=== PATIENT | male | born 1965 | race Caucasian/White ===

== ENCOUNTER 2017-02-21 14:36 | Observation (INO) | payer SELFPAY ==
[2017-02-21] MEDS ORDERED: Aspirin 81 MG Tab.Chew PO ONE (14:43)
[2017-02-21] MEDS ORDERED: Sodium Chloride 0.9% 10 ML Syringe FLUSH PRN (14:43)
[2017-02-21] MEDS ORDERED: Sodium Chloride 0.9% 2.5 ML Syringe FLUSH PRN (14:43)
--- NOTE | 2017-02-21 14:49 | EDM.PDOC ---
ED HPI GENERAL MEDICAL PROBLEM - General Chief Complaint: Chest Pain Stated Complaint: CHEST PAIN Time Seen by Provider: 02/21/17 14:37 - History of Present Illness INITIAL COMMENTS - FREE TEXT/NARRATIVE: HISTORY AND PHYSICAL: History of present illness: The patient is a 51-year-old male with no history of cardiac or pulmonary disease but does state that occasionally his blood pressure will be elevated but is not on medications for it and it follows at the [facility] when he needs care and who presents with complaints of sudden onset of left-sided chest pain that radiates to his left arm. The patient says he has a long-standing history of neck and back problems for which she takes ibuprofen and Flexeril when he needs it and says he had a cold about 3 weeks ago which has improved. Today he was having a normal day and was driving his truck when he suddenly felt left upper chest pain that radiated to his left upper arm it started a proximally 10 minutes ago and he rates it as a 7/10. He came immediately here and did not take anything for this pain prior to arrival. He is not short of breath or diaphoretic but did feel little nauseated with the pain. He has no weakness or tingling in his left upper extremity. The patient has only had an EKG in the past and says that he had an episode of chest pain like this years ago and had EKG and was told it was stress related. The patient has never done any other cardiac testing. The pain has been ongoing for 10 minutes prior to coming here and is ongoing here in the ED. The patient has no smoking or drug use history only drinks occasionally. He has no leg pain or swelling. Patient says that his father had multiple heart problems including his first heart attack at 50 years of age and his brother also had a heart attack at 50 years of age. Review of systems: As per history of present illness and below otherwise all systems reviewed and negative. Past medical history: As per history of present illness and as reviewed below otherwise noncontributory. Surgical history: As per history of present illness and as reviewed below otherwise noncontributory. Social history: No reported history of drug or alcohol abuse. Family history: As per history of present illness and as reviewed below otherwise noncontributory. Physical exam: Gen.: Well-developed well-nourished man who is nontoxic and speaking clearly and easily in ED. Vital signs have been reviewed by me. HEENT: Atraumatic, normocephalic, pupils reactive, negative for conjunctival pallor or scleral icterus, mucous membranes moist, throat clear, neck supple, nontender, trachea midline. Lungs: Clear to auscultation, breath sounds equal bilaterally, chest with some mild tenderness with palpation in the left upper chest wall area without defects swelling deformities or crepitus. Heart: S1S2, regular rate and rhythm no overt murmurs Abdomen: Soft, nondistended, nontender. Negative for masses or hepatosplenomegaly. Negative for costovertebral tenderness. Pelvis: Stable nontender. Genitourinary: Deferred. Rectal: Deferred. Extremities: Atraumatic, negative for cords or calf pain. Neurovascular unremarkable. No pedal edema or leg asymmetry Neuro: Awake, alert, oriented. Cranial nerves II through XII unremarkable. Cerebellum unremarkable. Motor and sensory unremarkable throughout. Exam nonfocal. Diagnostics: EKG x 2 CBC CMP troponin d-dimer INR chest x-ray Therapeutics: IV O2 monitor aspirin nitroglycerin sublingual, nitroglycerin paste morphine Patient tells nursing that after the 3 sublingual nitroglycerin his pain is now a 4/7. We will place Nitropaste to give a dose of morphine and reevaluate as the EKG shows no acute changes and we are currently awaiting the troponin. 1545: After the morphine and Nitropaste the patient says that his pain is a 1-2/ 10 and he feels much more comfortable. We are currently awaiting the troponin level to determine disposition but the patient is aware that he will either be admitted here or transfer to [facility] pending that result. 1605: Repeat EKG was performed which reveals no acute changes and no change from prior and the patient is currently chest pain-free. I discussed the case with the hospitalist Dr. Carbera at 16 11 PM and he agrees for admission. The patient is also aware of testing results and need for admission and is agreeable. Impression: Chest pain rule out ACS Definitive disposition and diagnosis as appropriate pending reevaluation and review of above. left chest Pain Score (Numeric/FACES): 7 - Related Data Allergies Allergy/AdvReac Type Severity Reaction Status Date / Time No Known Allergies Allergy Verified 02/21/17 14:42 Home Meds: Home Meds . [No Known Home Meds] 02/21/17 [History] Past Medical History HEENT History: Reports: None Cardiovascular History: Reports: None Respiratory History: Reports: None Gastrointestinal History: Reports: None Genitourinary History: Reports: None Musculoskeletal History: Reports: Other (See Below) Neurological History: Reports: None Psychiatric History: Reports: None Endocrine/Metabolic History: Reports: None Hematologic History: Reports: None Immunologic History: Reports: None Oncologic (Cancer) History: Reports: None Dermatologic History: Reports: None - Past Surgical History Head Surgeries/Procedures: Reports: None HEENT Surgical History: Reports: None Cardiovascular Surgical History: Reports: None Respiratory Surgical History: Reports: None GI Surgical History: Reports: None Male Surgical History: Reports: None Endocrine Surgical History: Reports: None Neurological Surgical History: Reports: None Musculoskeletal Surgical History: Reports: None Oncologic Surgical History: Reports: None Dermatological Surgical History: Reports: None Social & Family History - Family History Cardiac: Reports: NE - Tobacco Use Smoking Status *Q: Never Smoker - Caffeine Use Caffeine Use: Reports: Coffee - Recreational Drug Use Recreational Drug Use: No ED ROS GENERAL - Review of Systems Review Of Systems: ROS reveals no pertinent complaints other than HPI. ED EXAM, GENERAL - Physical Exam Exam: See Below (See dictation) Course - Vital Signs Last Recorded V/S: Last Vital Signs Temp 36.5 C 02/21/17 14:39 Pulse 77 02/21/17 15:06 Resp 18 02/21/17 15:06 BP 172/97 H 02/21/17 15:11 Pulse Ox 98 02/21/17 15:06 - Orders/Labs/Meds Orders: Active Orders 24 hr Category Date Time Status Cardiac Monitoring [RC] . DIRECTED Care 02/21/17 14:43 Active EKG Documentation Completion [RC] STAT Care 02/21/17 14:43 Active EKG Documentation Completion [RC] STAT Care 02/21/17 15:47 Active Oxygen Therapy, ED [RC] ASDIRECTED Care 02/21/17 14:43 Active Pulse Oximetry [RC] ASDIRECTED Care 02/21/17 14:43 Active Sodium Chloride 0.9% [Saline Flush] Med 02/21/17 14:43 Active 10 ml FLUSH ASDIRECTED PRN Sodium Chloride 0.9% [Saline Flush] Med 02/21/17 14:43 Active 2.5 ml FLUSH ASDIRECTED PRN Saline Lock Insert [OM.PC] Stat Oth 02/21/17 14:43 Ordered Medication Orders Sodium Chloride (Saline Flush) 10 ml FLUSH ASDIRECTED PRN PRN Reason: Keep Vein Open Sodium Chloride (Saline Flush) 2.5 ml FLUSH ASDIRECTED PRN PRN Reason: Keep Vein Open Labs: Laboratory Tests 02/21/17 02/21/17 02/21/17 Range/Units 14:55 14:55 14:55 WBC 6.62 (4.0-11.0) K/uL RBC 5.00 (4.50-5.90) M/uL Hgb 15.3 (13.0-17.0) g/dL Hct 43.6 (38.0-50.0) % MCV 87.2 (80.0-98.0) fL MCH 30.6 (27.0-32.0) pg MCHC 35.1 (31.0-37.0) g/dL RDW Std Deviation 38.7 (28.0-62.0) fl RDW Coeff of Grady 12 (11.0-15.0) % Plt Count 194 (150-400) K/uL MPV 11.70 (7.40-12.00) fL Neut % (Auto) 55.7 (48.0-80.0) % Lymph % (Auto) 27.2 (16.0-40.0) % Perry % (Auto) 7.9 (0.0-15.0) % Eos % (Auto) 8.3 H (0.0-7.0) % Baso % (Auto) 0.9 (0.0-1.5) % Neut # (Auto) 3.7 (1.4-5.7) K/uL Lymph # (Auto) 1.8 (0.6-2.4) K/uL Perry # (Auto) 0.5 (0.0-0.8) K/uL Eos # (Auto) 0.6 (0.0-0.7) K/uL Baso # (Auto) 0.1 (0.0-0.1) K/uL Nucleated RBC % 0.0 /100WBC Nucleated RBCs # 0 K/uL INR 1.03 (0.86-1.11) D-Dimer, Quantitative < 0.19 (0.0-0.52) mg/LFEU Sodium 141 (136-146) mmol/L Potassium 3.8 (3.5-5.1) mmol/L Chloride 108 (98-110) mmol/L Carbon Dioxide 25 (21-31) mmol/L BUN 12 (6.0-23.0) mg/dL Creatinine 1.0 (0.6-1.5) mg/dL Est Cr Clr Drug Dosing 89.36 mL/min Estimated GFR (MDRD) > 60.0 ml/min Glucose 88 (60-110) mg/dL Calcium 9.3 (8.8-10.8) mg/dL Total Bilirubin 0.4 (0.1-1.5) mg/dL AST 15 (5-40) IU/L ALT 21 (8-54) IU/L Alkaline Phosphatase 74 (40-150) Troponin I < 0.10 (0.0-0.29) NG/ML Total Protein 7.0 (6.0-8.0) g/dL Albumin 4.3 (3.5-5.0) g/dL Globulin 2.7 (2.0-3.5) g/dL Albumin/Globulin Ratio 1.6 (1.3-2.8) Meds: Medications Generic Name Dose Route Start Last Admin Trade Name Freq PRN Reason Stop Dose Admin Sodium Chloride 10 ml 02/21/17 14:43 Saline Flush FLUSH ASDIRECTED PRN Keep Vein Open Sodium Chloride 2.5 ml 02/21/17 14:43 Saline Flush FLUSH ASDIRECTED PRN Keep Vein Open Discontinued Medications Generic Name Dose Route Start Last Admin Trade Name Freq PRN Reason Stop Dose Admin Aspirin 324 mg 02/21/17 14:43 02/21/17 15:04 Aspirin PO 02/21/17 14:44 324 mg ONETIME ONE Administration Morphine Sulfate 4 mg 02/21/17 15:13 02/21/17 15:27 Morphine IVPUSH 02/21/17 15:14 4 mg ONETIME ONE Administration Nitroglycerin 0.4 mg 02/21/17 14:42 02/21/17 15:11 Nitrostat SL 02/21/17 14:43 0.4 mg ONETIME ONE Administration Nitroglycerin 1 gm 02/21/17 15:13 02/21/17 15:28 Nitro-Bid 2% TOP 02/21/17 15:14 1 gm ONETIME ONE Administration Departure - Departure Time of Disposition: 16:13 Disposition: Refer to Observation Condition: Good Clinical Impression: Acute coronary syndrome - Discharge Information Forms: ED Department Discharge - My Orders Last 24 Hours: My Active Orders 02/21/17 14:43 Cardiac Monitoring [RC] . DIRECTED EKG Documentation Completion [RC] STAT Oxygen Therapy, ED [RC] ASDIRECTED Pulse Oximetry [RC] ASDIRECTED Sodium Chloride 0.9% [Saline Flush] 10 ml FLUSH ASDIRECTED PRN Sodium Chloride 0.9% [Saline Flush] 2.5 ml FLUSH ASDIRECTED PRN Saline Lock Insert [OM.PC] Stat 02/21/17 15:47 EKG Documentation Completion [RC] STAT - Assessment/Plan Last 24 Hours: My Active Orders 02/21/17 14:43 Cardiac Monitoring [RC] . DIRECTED EKG Documentation Completion [RC] STAT Oxygen Therapy, ED [RC] ASDIRECTED Pulse Oximetry [RC] ASDIRECTED Sodium Chloride 0.9% [Saline Flush] 10 ml FLUSH ASDIRECTED PRN Sodium Chloride 0.9% [Saline Flush] 2.5 ml FLUSH ASDIRECTED PRN Saline Lock Insert [OM.PC] Stat 02/21/17 15:47 EKG Documentation Completion [RC] STAT
[2017-02-21] MEDS: Nitroglycerin 0.4 MG Tab.SL SL ONE ×3 (15:01→15:11)
[2017-02-21] MEDS ORDERED: Nitroglycerin 2% Oint 1 GM UD Packet TOP ONE (15:13)
[2017-02-21] MEDS ORDERED: Morphine 2 MG/ML Syringe IVPUSH ONE (15:13)
--- NOTE | 2017-02-21 15:28 | CR ---
EXAMINATION: AP chest radiograph HISTORY: Shortness of breath. FINDINGS: The trachea is midline. The cardiomediastinal silhouette is within normal limits. No pulmonary infilt rates, effusions or pneumothorax. Osseous structures appear unremarkable. IMPRESSION: No acute cardiopulmonary process.
[2017-02-21 15:48] LABS: CHLORIDE,CL 108 mmol/L (98-110); SODIUM,NA 141 mmol/L (136-146)
[2017-02-21] MEDS ORDERED: Acetaminophen 325 MG Tab PO PRN (16:28)
--- NOTE | 2017-02-21 16:47 | PCM.HP ---
H&P History of Present Illness - General Date of Service: 02/21/17 Admit Problem/Dx: Admission Diagnosis/Problem Admission Diagnosis/Problem Chest pain Source of Information: Patient History Limitations: Reports: No Limitations - History of Present Illness Initial Comments - Free Text/Narative: This 51 year old male with little pmh presented to the ED this afternoon with sudden onset of L sided anterior chest pain. He reports he was driving and started having sharp dull pain to his anterior L chest which radiated to his L arm, which was a throbbing pain. He immediately came to the ED to be evaluated due to family history of father and brother having their first MIs at age 50. He reports some nausea associated with the pain but no diaphoresis or SOB. He denies any injury to his chest pain. He denies headache, fever, URI smptoms, cough, fever or abdominal pain. No black or bloody BMs. No excessive use of NSAIDs. He reports chronic neck and low back pain from degenerative disk disease , which he was on Motrin 800 mg daily and Flexeril, which he stopped 3-4 months ago. He denies tobacco use or recreational drug use, he does occasionally uses alcohol. In the ED all labs unremarkable, troponin negative. CXR negative for acute cardiopulmonary process. BP noted to be elevated on admission, 160/100s. EKG SR with ST segment changes. He was given ASA, SL nitro x 1 and then NItro paste 1 inch applied. Morphine 4 mg also given, which with nitro paste relieved pain completely. He will be admitted observation for chest pain R/O ACS. PCP, [place] [facility]. left chest Pain Score (Numeric/FACES): 7 - Related Data Allergies/Adverse Reactions: Allergies Allergy/AdvReac Type Severity Reaction Status Date / Time No Known Allergies Allergy Verified 02/21/17 14:42 Home Medications: Home Meds . [No Known Home Meds] 02/21/17 [History] Past Medical History HEENT History: Reports: None Cardiovascular History: Reports: None, Afib. Denies: CAD, High Cholesterol, HI Respiratory History: Reports: None. Denies: Asthma, COPD, PE Gastrointestinal History: Reports: GERD (intermittent, takes Omeprazole PRN.) Genitourinary History: Reports: None. Denies: Acute Renal Failure, Chronic Renal Insuffiency Musculoskeletal History: Reports: Back Pain, Chronic (Neck and low back from degenerative disc disease.) Neurological History: Reports: None. Denies: CVA, Headaches, Chronic, MS, TIA Psychiatric History: Reports: None. Denies: Anxiety, Depression Endocrine/Metabolic History: Reports: None. Denies: Diabetes, Type II, Hypothyroidism Hematologic History: Reports: None Immunologic History: Reports: None Oncologic (Cancer) History: Reports: None Dermatologic History: Reports: None - Past Surgical History Head Surgeries/Procedures: Reports: None HEENT Surgical History: Reports: None Cardiovascular Surgical History: Reports: None Respiratory Surgical History: Reports: None GI Surgical History: Reports: None Male Surgical History: Reports: None Endocrine Surgical History: Reports: None Neurological Surgical History: Reports: None Musculoskeletal Surgical History: Reports: None Oncologic Surgical History: Reports: None Dermatological Surgical History: Reports: None Social & Family History - Family History Cardiac: Reports: HI - Tobacco Use Smoking Status *Q: Never Smoker - Caffeine Use Caffeine Use: Reports: Coffee - Alcohol Use Alcohol Use History: No - Recreational Drug Use Recreational Drug Use: No - Living Situation & Occupation Living situation: Reports: Occupation: Employed H&P Review of Systems - Review of Systems: Review Of Systems: See Below General: Reports: No Symptoms. Denies: Fever, Chills, Malaise, Weakness HEENT: Reports: No Symptoms. Denies: Hearing Changes, Sinus Congestion, Visual Changes Pulmonary: Reports: No Symptoms. Denies: Shortness of Breath, Wheezing, Cough Cardiovascular: Reports: Chest Pain (no longer having, was anterior upper L chest). Denies: Edema, Syncope Gastrointestinal: Reports: No Symptoms. Denies: Abdominal Pain, Black Stool, Bloody Stool, Nausea Genitourinary: Reports: No Symptoms. Denies: Dysuria, Frequency, Burning Musculoskeletal: Reports: No Symptoms Skin: Reports: No Symptoms Psychiatric: Reports: No Symptoms Neurological: Reports: No Symptoms Hematologic/Lymphatic: Reports: No Symptoms Immunologic: Reports: No Symptoms Exam - Exam Exam: See Below - Vital Signs Vital Signs: Last Vital Signs Temp 97.7 F 02/21/17 14:39 Pulse 77 02/21/17 15:06 Resp 18 02/21/17 15:06 BP 172/97 H 02/21/17 15:11 Pulse Ox 98 02/21/17 15:06 Weight: 81.6 kg - Exam Quality Assessment: DVT Prophylaxis General: Alert, Oriented, Cooperative HEENT: Conjunctiva Clear, Mucosa Moist & [place], Posterior Pharynx Clear Neck: Supple, +2 Carotid Pulse wo Bruit, Full Range of Motion Lungs: Clear to Auscultation, Normal Respiratory Effort Cardiovascular: Regular Rate, Regular Rhythm, Normal S1, Normal S2, Other (no chest paon to palpation of anterior chest wall. ). No: Systolic Murmur GI/Abdominal Exam: Normal Bowel Sounds, Soft, Non-Tender, No Organomegaly, No Distention, No Abnormal Bruit, No Mass, Pelvis Stable Back Exam: Normal Inspection, Full Range of Motion, NT Extremities: Normal Inspection, Normal Range of Motion, Non-Tender, No Pedal Edema, Normal Capillary Refill Neuro Extensive - Mental Status: Alert, Oriented x3, Normal Mood/Affect, Normal Cognition Neuro Extensive - Motor, Sensory, Reflexes: CN II-XII Intact, Normal Gait Psychiatric: Alert, Normal Affect, Normal Mood - Patient Data Result Diagrams: 02/21/17 14:55 02/21/17 14:55 EKG INTERPRETATION EKG Date: 02/21/17 Rhythm: NSR Rate (Beats/Min): 70 [place]: Normal P-Wave: Present QRS: Normal ST-T: Normal QT: Normal *Q Meaningful Use (ADM) - VTE *Q VTE Criteria *Q: - Stroke *Q Stroke Criteria *Q: - AMI *Q AMI Criteria *Q: - Problem List (1) Chest pain SNOMED Code(s): 39574757 ICD Code: R07.9 - CHEST PAIN, UNSPECIFIED Status: Acute Current Visit: Yes Qualifiers: Chest pain type: unspecified Qualified Code(s): R07.9 - Chest pain, unspecified (2) HTN (hypertension) SNOMED Code(s): 71034678 ICD Code: I10 - ESSENTIAL (PRIMARY) HYPERTENSION Status: Acute Current Visit: Yes Qualifiers: Hypertension type: essential hypertension Qualified Code(s): I10 - Essential (primary) hypertension (3) Chronic back pain SNOMED Code(s): 230680969 ICD Code: M54.9 - DORSALGIA, UNSPECIFIED; G89.29 - OTHER CHRONIC PAIN Status: Chronic Current Visit: Yes Qualifiers: Back pain location: low back pain Back pain laterality: bilateral Sciatica presence: without sciatica Qualified Code(s): M54.5 - Low back pain; G89.29 - Other chronic pain; G89.29 - Other chronic pain Problem List Initiated/Reviewed/Updated: Yes Orders Last 24hrs: Active Orders 24 hr Category Date Time Status Communication Order [RC] PRN Care 02/21/17 16:31 Active Intake and Output [RC] QSHIFT Care 02/21/17 16:29 Active Oxygen Therapy [RC] PRN Care 02/21/17 16:28 Active Telemetry Monitoring [Cardiac Monitoring] [RC] . Care 02/21/17 16:31 Active DIRECTED Up With Assistance [RC] ASDIRECTED Care 02/21/17 16:28 Active VTE/DVT Education [RC] PER UNIT ROUTINE Care 02/21/17 16:28 Active Vital Signs [RC] Q4H Care 02/21/17 16:28 Active Heart Healthy Diet [DIET] Diet 02/21/17 Dinner Active GLYCOSYLATED HEMOGLOBIN,HGBA1C [CHEM] Routine Lab 02/21/17 14:55 Received LIPID PANEL [CHEM] Routine Lab 02/21/17 14:55 Received TROPONIN I [CHEM] Q6H Lab 02/21/17 21:00 Ordered TROPONIN I [CHEM] Q6H Lab 02/22/17 03:00 Ordered Acetaminophen [Tylenol] Med 02/21/17 16:28 Active 650 mg PO Q4H PRN Aspirin Med 02/22/17 09:00 Active 81 mg PO DAILY Resuscitation Status Routine Resus Stat 02/21/17 16:28 Ordered Medication Orders Acetaminophen (Tylenol) 650 mg PO Q4H PRN PRN Reason: Pain (mild 1-3) Aspirin (Aspirin) 81 mg PO DAILY TRUMAN Sodium Chloride (Saline Flush) 10 ml FLUSH ASDIRECTED PRN PRN Reason: Keep Vein Open Sodium Chloride (Saline Flush) 2.5 ml FLUSH ASDIRECTED PRN PRN Reason: Keep Vein Open Assessment/Plan Comment:: This 51 year old male admitted with chest pain, ruling out ACS 1. Chest pain: Monitor on telemetry. Trend troponins. Will obtained cholesterol and A1c due to risk factors. Has family history of MIs at age 50 with father and brother. Leave Nitro paste on for now, remove this evening. Will monitor for recurrent chest pain. Educated patient on the need for stress test as outpatient for further evaluation. 2. HTN: Has had some history of, but never medicated for. BP remains slightly elevated with Nitro paste on, 140/80s, will start Lisinopril 10 mg tonight and monitor. 3. Chronic back/neck pain: Doesn't take anything chronically at home anymore, Tylenol when needed. This is ordered PRN pain. VTE: Lovenox Dispo: Likely discharge in am.
[2017-02-21] MEDS: Lisinopril 10 MG Tab PO SCH (17:39)
[2017-02-22] MEDS ORDERED: Aspirin 81 MG Tab.Chew PO SCH (09:00)
[2017-02-22] MEDS: Lisinopril 10 MG Tab PO SCH (09:26)
--- NOTE | 2017-02-22 10:21 | PCM.DCSUM1 ---
Discharge Summary - Hospital Course Brief History: This 51 year old male with little pmh presented to the ED this afternoon with sudden onset of L sided anterior chest pain. He reports he was driving and started having sharp dull pain to his anterior L chest which radiated to his L arm, which was a throbbing pain. He immediately came to the ED to be evaluated due to family history of father and brother having their first MIs at age 50. He reports some nausea associated with the pain but no diaphoresis or SOB. He denies any injury to his chest pain. He denies headache, fever, URI smptoms, cough, fever or abdominal pain. No black or bloody BMs. No excessive use of NSAIDs. He reports chronic neck and low back pain from degenerative disk disease, which he was on Motrin 800 mg daily and Flexeril, which he stopped 3-4 months ago. He denies tobacco use or recreational drug use , he does occasionally uses alcohol. In the ED all labs unremarkable, troponin negative. CXR negative for acute cardiopulmonary process. BP noted to be elevated on admission, 160/100s. EKG SR with ST segment changes. He was given ASA, SL nitro x 1 and then NItro paste 1 inch applied. Morphine 4 mg also given , which with nitro paste relieved pain completely. He will be admitted observation for chest pain R/O ACS. - Discharge Data Discharge Date: 02/22/17 Discharge Disposition: Home, Self-Care 01 Condition: Stable - Discharge Diagnosis/Problem(s) (1) Chest pain SNOMED Code(s): 17930589 ICD Code: R07.9 - CHEST PAIN, UNSPECIFIED Status: Resolved Current Visit : Yes Qualifiers: Chest pain type: unspecified Qualified Code(s): R07.9 - Chest pain, unspecified (2) HTN (hypertension) SNOMED Code(s): 09481960 ICD Code: I10 - ESSENTIAL (PRIMARY) HYPERTENSION Status: Acute Current Visit: Yes Qualifiers: Hypertension type: essential hypertension Qualified Code(s): I10 - Essential (primary) hypertension (3) Chronic back pain SNOMED Code(s): 442886220 ICD Code: M54.9 - DORSALGIA, UNSPECIFIED; G89.29 - OTHER CHRONIC PAIN Status: Chronic Current Visit: Yes Qualifiers: Back pain location: low back pain Back pain laterality: bilateral Sciatica presence: without sciatica Qualified Code(s): M54.5 - Low back pain; G89.29 - Other chronic pain; G89.29 - Other chronic pain - Discharge Plan Prescriptions/Med Rec: Aspirin 81 mg PO DAILY #30 tab.chew Lisinopril [Prinivil] 10 mg PO DAILY #30 tablet Home Medications: Home Meds Aspirin 81 mg PO DAILY #30 tab.chew 02/22/17 [Rx] Lisinopril [Prinivil] 10 mg PO DAILY #30 tablet 02/22/17 [Rx] Patient Handouts: Acute Coronary Syndrome, Lisinopril tablets, Aspirin, ASA oral tablets Referrals: Darrin Cancino MD [Physician] - 03/01/17 8:30 am - Discharge Summary/Plan Comment DC Time >30 min.: No Discharge Summary/Plan Comment: Discharge Diagnoses: Chest pain, ACS ruled out HTN [place] was admitted and monitored due to L sided chest pain. Telemetry revealed , SR with no ST segment changes. Troponins all negative. ACS ruled out. No recurrent chest pain. Lisinopril was started due to elevated blood pressures in the ED on 150-160/100s. This brought BP down well, to 120-130/80s. Metoprolol was not started due to HR already in the 60-70s. He will be discharged home today with follow up outpatient stress test and with PCP in 1 week. He is to not perform strenuous activity until after the stress test and to take baby Aspirin 81 mg daily. He was encouraged to return to the clinic or ED if concerns should arise. - General Info Date of Service: 02/22/17 Admission Dx/Problem (Free Text: Admission Diagnosis/Problem Admission Diagnosis/Problem Chest pain Subjective Update: Doing well this morning, no further chest pain. No lightheadedness or dizziness. Feels good and eager to be discharge home. Functional Status: Reports: Pain Controlled, Tolerating Diet, Ambulating, Urinating - Review of Systems General: Reports: No Symptoms HEENT: Reports: No Symptoms Pulmonary: Reports: No Symptoms. Denies: Shortness of Breath, Cough, Sputum Cardiovascular: Reports: No Symptoms. Denies: Chest Pain Gastrointestinal: Reports: No Symptoms. Denies: Abdominal Pain, Nausea, Vomiting Genitourinary: Reports: No Symptoms Musculoskeletal: Reports: No Symptoms. Denies: Neck Pain Skin: Reports: No Symptoms Neurological: Reports: No Symptoms Psychiatric: Reports: No Symptoms - Patient Data Vitals - Most Recent: Last Vital Signs Temp 97.9 F 02/22/17 09:00 Pulse 60 02/22/17 09:00 Resp 18 02/22/17 09:00 BP 134/75 02/22/17 09:26 Pulse Ox 97 02/22/17 09:00 Weight - Most Recent: 81.6 kg I&O - Last 24 hours: Intake & Output 02/21/17 02/22/17 02/22/17 22:59 06:59 14:59 Intake Total 600 Output Total 550 Balance 50 Lab Results - Last 24 hrs: Laboratory Results - last 24 hr 02/21/17 02/22/17 Range/Units 20:54 02:50 Troponin I < 0.10 < 0.10 (0.0-0.29) NG/ML Med Orders - Current: Current Medications Acetaminophen (Tylenol) 650 mg PO Q4H PRN PRN Reason: Pain (mild 1-3) Last Admin: 02/22/17 00:03 Dose: 650 mg Aspirin (Aspirin) 81 mg PO DAILY [facility] Last Admin: 02/22/17 09:25 Dose: 81 mg Lisinopril (Prinivil) 10 mg PO DAILY [facility] Last Admin: 02/22/17 09:26 Dose: 10 mg Sodium Chloride (Saline Flush) 10 ml FLUSH ASDIRECTED PRN PRN Reason: Keep Vein Open Sodium Chloride (Saline Flush) 2.5 ml FLUSH ASDIRECTED PRN PRN Reason: Keep Vein Open Discontinued Medications Aspirin (Aspirin) 324 mg PO ONETIME ONE Stop: 02/21/17 14:44 Last Admin: 02/21/17 15:04 Dose: 324 mg Morphine Sulfate (Morphine) 4 mg IVPUSH ONETIME ONE Stop: 02/21/17 15:14 Last Admin: 02/21/17 15:27 Dose: 4 mg Nitroglycerin (Nitrostat) 0.4 mg SL ONETIME ONE Stop: 02/21/17 14:43 Last Admin: 02/21/17 15:11 Dose: 0.4 mg Nitroglycerin (Nitro-Bid 2%) 1 gm TOP ONETIME ONE Stop: 02/21/17 15:14 Last Admin: 02/21/17 15:28 Dose: 1 gm - Exam Quality Assessment: Denies: Supplemental Oxygen General: Reports: Alert, Oriented, Cooperative, No Acute Distress Neck: Reports: Supple Lungs: Reports: Clear to Auscultation, Normal Respiratory Effort Cardiovascular: Reports: Regular Rate, Regular Rhythm GI/Abdominal Exam: Normal Bowel Sounds, Soft, Non-Tender, No Organomegaly, No Distention, No Abnormal Bruit, No Mass, Pelvis Stable Back Exam: Reports: Normal Inspection, Full Range of Motion Skin: Reports: Warm, Dry, Intact Neurological: Reports: No New Focal Deficit Psy/Mental Status: Reports: Alert, Normal Affect, Normal Mood *Q Meaningful Use (DIS) - VTE *Q VTE Criteria *Q: - Stroke *Q Stroke Criteria *Q: - AMI *Q AMI Criteria *Q:
== END 2017-02-22 13:45 | disposition home or self-care (01) ==
LOC: MW.ED 14:36 → MW.MS 16:19 → UNDODISOB 02-22 13:45
PROVIDERS: ADMIT Internal Medicine; ATTEND Internal Medicine
DX: R07.9 Chest pain, unspecified (principal); G89.29 Other chronic pain; M54.2 Cervicalgia; M54.5 Low back pain; K21.9 Gastro-esophageal reflux disease without esophagitis; I10 Essential (primary) hypertension; Z79.82 Long term (current) use of aspirin; Z79.899 Other long term (current) drug therapy
CPT/HCPCS: 36415; 71045; 80053; 80061; 83036; 84484; 85025; 85379; 85610; 93005; 96374; 99285; A9270; G0378; J2270; 99284

== ENCOUNTER 2017-11-13 01:13 | Emergency (ER) | payer OTHER ==
[2017-11-13] MEDS ORDERED: Sodium Chloride 0.9% 10 ML Syringe FLUSH PRN (01:44)
[2017-11-13] MEDS ORDERED: Sodium Chloride 0.9% 1,000 ML IV ONE (01:44)
[2017-11-13] MEDS ORDERED: Sodium Chloride 0.9% 2.5 ML Syringe FLUSH PRN ×2 (01:44)
[2017-11-13] MEDS ORDERED: Ondansetron 4 MG/2 ML SDV IVPUSH ONE (01:44)
[2017-11-13] MEDS ORDERED: HYDROmorphone 2 MG/ML SDV IVPUSH ONE (01:44)
--- NOTE | 2017-11-13 01:46 | EDM.PDOC ---
ED HPI GENERAL MEDICAL PROBLEM - General Chief Complaint: Abdominal Pain Stated Complaint: ABDOMINAL PAIN Time Seen by Provider: 11/13/17 01:14 Source of Information: Reports: Patient History Limitations: Reports: No Limitations - History of Present Illness INITIAL COMMENTS - FREE TEXT/NARRATIVE: HISTORY AND PHYSICAL: History of present illness: 52-year-old male presenting to emergency department with chief complaint of epigastric/general abdominal pain starting approximately 1 hour ago. Patient states that approximately 1 hour ago he began to have epigastric abdominal pain. He denies any associated nausea or vomiting. Denies any diarrhea , bloody stool, or dark tarry stool. Patient was seen in emergency room approximately 2 months ago and diagnosed with H. pylori gastritis/peptic ulcer disease. At that time he was given triple therapy. He states that he did do the complete 2 weeks of the triple therapy. He has been trying to avoid spicy foods and up until this evening was doing very well. Patient does admit to taking a sildenafil oral gel that he got from a friend from the [facility] called, Kamagra 100 mg. He does believe that this may have been the etiology. Current pain is 8 out of 10 and generally located in epigastric area but then more diffusely in the right upper quadrant as well as right lower quadrant. He currently denies any chest pain, palpitations, shortness of breath, syncopal episodes, focal neurologic deficits. He is generally healthy and takes no regular medications other than a acid maitre d/proton pump inhibitor. He has been using Mylanta [id number] as well as needed. Has not followed up with a general surgeon as advised on his last visit. On exam abdomen is soft, he has tenderness to palpation specifically in the epigastric area but also in the right upper quadrant and more diffusely in the right lower and left upper quadrant. Positive bowel sounds heard in all 4 quadrants, abdomen is nonrigid and nondistended. No other significant findings. CBC, UA unremarkable. Patient was negative for H. pylori showing successful treatment from previous ER visit. Patient did have mild hypokalemia of 3.2. This was replaced with 40 KCl . Patient was also given 1 GI cocktail with improvement of symptoms. CT abdomen and pelvis did show some thickening of the distal esophagus with grossly normal-appearing stomach and duodenum. No other significant findings. Review of systems: As per history of present illness and below otherwise all systems reviewed and negative. Past medical history: As per history of present illness and as reviewed below otherwise noncontributory. Surgical history: As per history of present illness and as reviewed below otherwise noncontributory. Social history: No reported history of drug or alcohol abuse. Family history: As per history of present illness and as reviewed below otherwise noncontributory. Physical exam: HEENT: Atraumatic, normocephalic, pupils reactive, negative for conjunctival pallor or scleral icterus, mucous membranes moist, throat clear, neck supple, nontender, trachea midline. Lungs: Clear to auscultation, breath sounds equal bilaterally, chest nontender. Heart: S1S2, regular, negative for clicks, rubs, or JVD. Abdomen: Soft, nondistended, Epigastric, RUQ, RLQ tenderness. Negative for masses or hepatosplenomegaly. Negative for costovertebral tenderness. Pelvis: Stable nontender. Genitourinary: Deferred. Rectal: Deferred. Extremities: Atraumatic, negative for cords or calf pain. Neurovascular unremarkable. Neuro: Awake, alert, oriented. Cranial nerves II through XII unremarkable. Cerebellum unremarkable. Motor and sensory unremarkable throughout. Exam nonfocal. Diagnostics: CBC, CMP, lipase, H. pylori, CT abdomen pelvis Therapeutics: 1 L normal saline 1, Toradol 30 mg IV 1, 40 KCl, GI cocktail Impression: Abdominal pain History of H. pylori Gastroesophageal reflux disease Duodenitis Plan: Please see above H&P. Secondary to the thickening of the distal esophagus I did stress to the patient he needs to follow-up with general surgery for an EGD in the near future. He is in full understanding. He did have significant relief with GI cocktail and was discharged in good condition with instructions to follow-up with primary care provider as well as general surgery. He was instructed to return to emergency department if he had any new or worsening symptoms. Definitive disposition and diagnosis as appropriate pending reevaluation and review of above. abdominal Pain Score (Numeric/FACES): 8 - Related Data Allergies Allergy/AdvReac Type Severity Reaction Status Date / Time No Known Allergies Allergy Verified 11/13/17 01:28 Home Meds: Home Meds Lansoprazole [Prevacid] 0 mg PO DAILY 09/25/17 [History] Naproxen Sodium [Aleve] 220 mg PO ASDIRECTED PRN 09/25/17 [History] Past Medical History HEENT History: Reports: Other (See Below) Other HEENT History: wears glasses Cardiovascular History: Reports: Hypertension Respiratory History: Reports: None Gastrointestinal History: Reports: GERD, Other (See Below) Other Gastrointestinal History: h'pylori Genitourinary History: Reports: None Musculoskeletal History: Reports: Back Pain, Chronic Other Musculoskeletal History: DDD of back an neck Neurological History: Reports: None Psychiatric History: Reports: None Endocrine/Metabolic History: Reports: None Hematologic History: Reports: None Immunologic History: Reports: None Oncologic (Cancer) History: Reports: None Dermatologic History: Reports: None - Past Surgical History Head Surgeries/Procedures: Reports: None HEENT Surgical History: Reports: None Cardiovascular Surgical History: Reports: None Respiratory Surgical History: Reports: None GI Surgical History: Reports: None Male Surgical History: Reports: None Endocrine Surgical History: Reports: None Neurological Surgical History: Reports: None Musculoskeletal Surgical History: Reports: None Oncologic Surgical History: Reports: None Dermatological Surgical History: Reports: None Social & Family History - Family History Family Medical History: Noncontributory Cardiac: Reports: [place] - Tobacco Use Smoking Status *Q: Never Smoker Second Hand Smoke Exposure: No - Caffeine Use Caffeine Use: Reports: Soda, Tea - Recreational Drug Use Recreational Drug Use: No - Living Situation & Occupation Living situation: Reports: Occupation: Employed ED ROS GENERAL - Review of Systems Review Of Systems: ROS reveals no pertinent complaints other than HPI. ED EXAM, GENERAL - Physical Exam Exam: See Below Course - Vital Signs Last Recorded V/S: Last Vital Signs Temp 97.6 F 11/13/17 01:22 Pulse 71 11/13/17 01:22 Resp 18 11/13/17 01:22 BP 156/107 H 11/13/17 01:22 Pulse Ox 96 11/13/17 01:22 - Orders/Labs/Meds Orders: Active Orders 24 hr Category Date Time Status Abdomen Pelvis w Cont [CT] Stat Exams 11/13/17 01:44 Ordered CULTURE URINE [RM] Stat Lab 11/13/17 01:58 Received Sodium Chloride 0.9% [Saline Flush] Med 11/13/17 01:44 Active 10 ml FLUSH ASDIRECTED PRN Sodium Chloride 0.9% [Saline Flush] Med 11/13/17 01:44 Active 2.5 ml FLUSH ASDIRECTED PRN Sodium Chloride 0.9% [Saline Flush] Med 11/13/17 01:44 Active 2.5 ml FLUSH ASDIRECTED PRN Saline Lock Insert [OM.PC] Stat Oth 11/13/17 01:44 Ordered Medication Orders Sodium Chloride (Saline Flush) 2.5 ml FLUSH ASDIRECTED PRN PRN Reason: Keep Vein Open Sodium Chloride (Saline Flush) 10 ml FLUSH ASDIRECTED PRN PRN Reason: Keep Vein Open Sodium Chloride (Saline Flush) 2.5 ml FLUSH ASDIRECTED PRN PRN Reason: Keep Vein Open Labs: Laboratory Tests 11/13/17 11/13/17 11/13/17 Range/Units 01:45 01:58 01:58 WBC 8.15 (4.0-11.0) K/uL RBC 4.95 (4.50-5.90) M/uL Hgb 15.1 (13.0-17.0) g/dL Hct 42.7 (38.0-50.0) % MCV 86.3 (80.0-98.0) fL MCH 30.5 (27.0-32.0) pg MCHC 35.4 (31.0-37.0) g/dL RDW Std Deviation 34.6 (28.0-62.0) fl RDW Coeff of [place] 11 (11.0-15.0) % Plt Count 182 (150-400) K/uL MPV 11.20 (7.40-12.00) fL Neut % (Auto) 56.2 (48.0-80.0) % Lymph % (Auto) 27.7 (16.0-40.0) % [place] % (Auto) 8.1 (0.0-15.0) % Eos % (Auto) 7.5 H (0.0-7.0) % Baso % (Auto) 0.5 (0.0-1.5) % Neut # (Auto) 4.6 (1.4-5.7) K/uL Lymph # (Auto) 2.3 (0.6-2.4) K/uL [place] # (Auto) 0.7 (0.0-0.8) K/uL Eos # (Auto) 0.6 (0.0-0.7) K/uL Baso # (Auto) 0.0 (0.0-0.1) K/uL Sodium (136-148) mmol/L Potassium (3.5-5.1) mmol/L Chloride (98-107) mmol/L Carbon Dioxide (21.0-32.0) mmol/L BUN (7.0-18.0) mg/dL Creatinine (0.8-1.3) mg/dL Est Cr Clr Drug Dosing mL/min Estimated GFR (MDRD) ml/min Glucose (74-106) mg/dL Calcium (8.5-10.1) mg/dL Total Bilirubin (0.2-1.0) mg/dL AST (15-37) IU/L ALT (14-63) IU/L Alkaline Phosphatase (46-116) U/L Total Protein (6.4-8.2) g/dL Albumin (3.4-5.0) g/dL Globulin (2.0-3.5) g/dL Albumin/Globulin Ratio (1.3-2.8) Amylase (25-115) U/L Lipase (73-393) U/L Urine Color YELLOW Urine Appearance CLEAR Urine pH 6.0 (5.0-8.0) Ur Specific [place] 1.025 (1.001-1.035) Urine Protein NEGATIVE (NEGATIVE) mg/dL Urine Glucose (UA) NEGATIVE (NEGATIVE) mg/dL Urine Ketones NEGATIVE (NEGATIVE) mg/dL Urine Occult Blood NEGATIVE (NEGATIVE) Urine Nitrite NEGATIVE (NEGATIVE) Urine Bilirubin NEGATIVE (NEGATIVE) Urine Urobilinogen 0.2 (<2.0) EU/dL Ur Leukocyte Esterase NEGATIVE (NEGATIVE) Urine RBC NONE SEEN (0-2/HPF) Urine WBC 1-2 (0-5/HPF) Ur Epithelial Cells NOT SEEN (NONE-FEW) Urine Bacteria FEW (NEGATIVE) H. pylori IgG Antibody NEGATIVE (NEG) 11/13/17 Range/Units 01:58 WBC (4.0-11.0) K/uL RBC (4.50-5.90) M/uL Hgb (13.0-17.0) g/dL Hct (38.0-50.0) % MCV (80.0-98.0) fL MCH (27.0-32.0) pg MCHC (31.0-37.0) g/dL RDW Std Deviation (28.0-62.0) fl RDW Coeff of [place]ady (11.0-15.0) % Plt Count (150-400) K/uL MPV (7.40-12.00) fL Neut % (Auto) (48.0-80.0) % Lymph % (Auto) (16.0-40.0) % [place] % (Auto) (0.0-15.0) % Eos % (Auto) (0.0-7.0) % Baso % (Auto) (0.0-1.5) % Neut # (Auto) (1.4-5.7) K/uL Lymph # (Auto) (0.6-2.4) K/uL [place] # (Auto) (0.0-0.8) K/uL Eos # (Auto) (0.0-0.7) K/uL Baso # (Auto) (0.0-0.1) K/uL Sodium 141 (136-148) mmol/L Potassium 3.2 L (3.5-5.1) mmol/L Chloride 104 (98-107) mmol/L Carbon Dioxide 28.7 (21.0-32.0) mmol/L BUN 13 (7.0-18.0) mg/dL Creatinine 1.2 (0.8-1.3) mg/dL Est Cr Clr Drug Dosing 73.65 mL/min Estimated GFR (MDRD) > 60.0 ml/min Glucose 113 H (74-106) mg/dL Calcium 8.9 (8.5-10.1) mg/dL Total Bilirubin 0.4 (0.2-1.0) mg/dL AST 54 H (15-37) IU/L ALT 53 (14-63) IU/L Alkaline Phosphatase 98 (46-116) U/L Total Protein 7.0 (6.4-8.2) g/dL Albumin 3.9 (3.4-5.0) g/dL Globulin 3.1 (2.0-3.5) g/dL Albumin/Globulin Ratio 1.3 (1.3-2.8) Amylase 35 (25-115) U/L Lipase 145 (73-393) U/L Urine Color Urine Appearance Urine pH (5.0-8.0) Ur Specific [place] (1.001-1.035) Urine Protein (NEGATIVE) mg/dL Urine Glucose (UA) (NEGATIVE) mg/dL Urine Ketones (NEGATIVE) mg/dL Urine Occult Blood (NEGATIVE) Urine Nitrite (NEGATIVE) Urine Bilirubin (NEGATIVE) Urine Urobilinogen (<2.0) EU/dL Ur Leukocyte Esterase (NEGATIVE) Urine RBC (0-2/HPF) Urine WBC (0-5/HPF) Ur Epithelial Cells (NONE-FEW) Urine Bacteria (NEGATIVE) H. pylori IgG Antibody (NEG) Meds: Medications Generic Name Dose Route Start Last Admin Trade Name Freq PRN Reason Stop Dose Admin Sodium Chloride 2.5 ml 11/13/17 01:44 Saline Flush FLUSH ASDIRECTED PRN Keep Vein Open Sodium Chloride 10 ml 11/13/17 01:44 Saline Flush FLUSH ASDIRECTED PRN Keep Vein Open Sodium Chloride 2.5 ml 11/13/17 01:44 Saline Flush FLUSH ASDIRECTED PRN Keep Vein Open Discontinued Medications Generic Name Dose Route Start Last Admin Trade Name Freq PRN Reason Stop Dose Admin Al Hydroxide/Mg Hydroxide 15 0 ml 11/13/17 03:23 ml/ Lidocaine HCl 5 ml PO 11/13/17 03:24 ONETIME ONE Hydromorphone HCl 1 mg 11/13/17 01:44 11/13/17 02:02 Dilaudid IVPUSH 11/13/17 01:45 Not Given ONETIME ONE Sodium Chloride 1,000 mls @ 999 mls/hr 11/13/17 01:44 11/13/17 01:59 Normal Saline IV 11/13/17 02:44 999 mls/hr BOLUS ONE Administration Iopamidol 100 ml 11/13/17 03:18 11/13/17 03:19 Isovue Multipack-370 (76%) IVPUSH 11/13/17 03:19 100 ml ONETIME STA Administration Ketorolac Tromethamine 30 mg 11/13/17 01:55 11/13/17 01:59 Toradol IVPUSH 11/13/17 01:56 30 mg ONETIME ONE Administration Ketorolac Tromethamine Confirm 11/13/17 01:56 11/13/17 02:01 Toradol Administered 11/13/17 01:57 Not Given Dose 30 mg .ROUTE .STK-MED ONE Ondansetron HCl 4 mg 11/13/17 01:44 11/13/17 01:59 Zofran IVPUSH 11/13/17 01:45 4 mg ONETIME ONE Administration Potassium Chloride 40 meq 11/13/17 02:31 Klor-Con M20 PO 11/13/17 02:32 ONETIME ONE Departure - Departure Time of Disposition: 03:25 Disposition: Home, Self-Care 01 Condition: Good Clinical Impression: Esophagitis, Hypokalemia GERD (gastroesophageal reflux disease) Qualifiers: Esophagitis presence: with esophagitis Qualified Code(s): K21.0 - Gastro- esophageal reflux disease with esophagitis - Discharge Information Referrals: PCP,None [Primary Care Provider] - Forms: ED Department Discharge Additional Instructions: My general discharge The following information is given to patients seen in the emergency department who are being discharged to home. This information is to outline your options for follow-up care. We provide all patients seen in our emergency department with a follow-up referral. The need for follow-up, as well as the timing and circumstances, are variable depending upon the specifics of your emergency department visit. If you don't have a primary care physician on staff, we will provide you with a referral. We always advise you to contact your personal physician following an emergency department visit to inform them of the circumstance of the visit and for follow-up with them and/or the need for any referrals to a consulting specialist. The emergency department will also refer you to a specialist when appropriate. This referral assures that you have the opportunity for follow-up care with a specialist. All of these measure are taken in an effort to provide you with optimal care, which includes your follow-up. Under all circumstances we always encourage you to contact your private physician who remains a resource for coordinating your care. When calling for follow-up care, please make the office aware that this follow-up is from your recent emergency room visit. If for any reason you are refused follow-up, please contact the [facility] Emergency Department at and asked to speak to the emergency department charge nurse. My General Surgery [facility] Specialty [facility] - General Surgery Professional Building [address] [place] [address], [address] [place] [address] [facility] [address] [place] [address] Please call general surgery as well as primary care tomorrow for follow-up appointments. Be sure to tell them you were seen in the emergency department and they wish for you to be followed up with for the thickening of the distal esophagus seen on CT during your ER visit. Return to emergency department if any new or worsening symptoms. - My Orders Last 24 Hours: My Active Orders 11/13/17 01:44 Abdomen Pelvis w Cont [CT] Stat Sodium Chloride 0.9% [Saline Flush] 10 ml FLUSH ASDIRECTED PRN Sodium Chloride 0.9% [Saline Flush] 2.5 ml FLUSH ASDIRECTED PRN Sodium Chloride 0.9% [Saline Flush] 2.5 ml FLUSH ASDIRECTED PRN Saline Lock Insert [OM.PC] Stat 11/13/17 01:58 CULTURE URINE [RM] Stat - Assessment/Plan Last 24 Hours: My Active Orders 11/13/17 01:44 Abdomen Pelvis w Cont [CT] Stat Sodium Chloride 0.9% [Saline Flush] 10 ml FLUSH ASDIRECTED PRN Sodium Chloride 0.9% [Saline Flush] 2.5 ml FLUSH ASDIRECTED PRN Sodium Chloride 0.9% [Saline Flush] 2.5 ml FLUSH ASDIRECTED PRN Saline Lock Insert [OM.PC] Stat 11/13/17 01:58 CULTURE URINE [RM] Stat
[2017-11-13] MEDS ORDERED: Ketorolac 30 MG/ML SDV IVPUSH ONE (01:55)
[2017-11-13] MEDS ORDERED: Ketorolac 30 MG/ML SDV ONE (01:56)
[2017-11-13 02:21] LABS: CHLORIDE,CL 104 mmol/L (98-107); SODIUM,NA 141 mmol/L (136-148)
[2017-11-13] MEDS ORDERED: Potassium Chloride 20 MEQ Tab.ER PO ONE (02:31)
[2017-11-13] MEDS ORDERED: Iopamidol 755 MG/ML 200 ML Multipack Bottle IVPUSH STA (03:18)
[2017-11-13] MEDS ORDERED: Alum Hydrox/Mag Hydrox/Simeth 15 ML, Lidocaine 2% 5 ML PO ONE ×2 (03:23)
--- NOTE | 2017-11-14 09:43 | CT ---
EXAM DATE: 11/13/17 PATIENT'S AGE: 52 Patient: PB HAMMER Facility: [place], [place] Site . Site : [id number] Study: CT Abdomen/Pelvis [id number] 3:08:30 AM Ordering Physician: Marcio Cobb Final Report: INDICATION: Abdominal pain, history of peptic ulcer disease and gastritis TECHNIQUE: CT abdomen and pelvis acquired with IV contrast. 100 cc Isovue 370 COMPARISON: 09/25/2017 FINDINGS: Lower chest: Unremarkable. Liver: Unremarkable. Spleen: Unremarkable. Pancreas: Unremarkable. Gallbladder and bile ducts: Unremarkable. Kidneys: Unremarkable. Adrenal glands: Unremarkable. GI tract: Unremarkable. Appendix is normal. Vascular structures: Unremarkable. Lymph nodes: Unremarkable. Miscellaneous: Small fat containing umbilical hernia. No free air or significant free fluid. Pelvic Organs: Unremarkable. Bones: Unremarkable for age. IMPRESSION: Thickening of the distal esophagus. Grossly normal appearing stomach and duodenum. Dictated by Nilay Canas MD @ 11/13/2017 3:21:48 AM Dictated by: Nilay Canas MD @ 11/13/2017 03:21:58 (Electronic Signature) Report Signed by Proxy. [facility]
== END 2017-11-13 03:40 | disposition home or self-care (01) ==
LOC: MW.ED 01:13
DX: K21.0 Gastro-esophageal reflux disease with esophagitis (principal); K29.80 Duodenitis without bleeding; I10 Essential (primary) hypertension; E87.6 Hypokalemia; Z86.19 Personal history of other infectious and parasitic diseases
CPT/HCPCS: 74177; 80053; 81001; 82150; 83690; 85025; 86677; 87086; 96361; 96374; 96375; 99284; A9270; J1885; J2405; J7040; Q9967

== ENCOUNTER 2017-11-24 10:40 | Day surgery (SDC) | payer OTHER ==
[~2017-11-24 10:40] MED LIST: Lactated Ringers 1,000 ML IV SCH
--- NOTE | 2017-11-24 11:22 | PCM.PREANE ---
Preanesthetic Assessment - Anesthesia/Transfusion/Family Hx Anesthesia History: No Prior Anesthesia Transfusion History: No Prior Transfusion(s) - Review of Systems General: No Symptoms Pulmonary: No Symptoms Cardiovascular: No Symptoms Neurological: No Symptoms Other: Reports: None - Physical Assessment NPO Status Date: 11/23/17 Height: 1.75 m Weight: 85.275 kg ASA Class: 2 Mental Status: Alert & Oriented x3 ROM/Head Extension: Full Lungs: Clear to Auscultation, Normal Respiratory Effort Cardiovascular: Regular Rate, Regular Rhythm - Allergies Allergies/Adverse Reactions: Allergies Allergy/AdvReac Type Severity Reaction Status Date / Time No Known Allergies Allergy Verified 11/20/17 12:41 - Blood Blood Available: No - Anesthesia Plan Pre-Op Medication Ordered: None - Acknowledgements Anesthesia Type Planned: MAC Pt an Appropriate Candidate for the Planned Anesthesia: Yes Alternatives and Risks of Anesthesia Discussed w Pt/Guardian: Yes Pt/Guardian Understands and Agrees with Anesthesia Plan: Yes PreAnesthesia Questionnaire HEENT History: Reports: Other (See Below) Other HEENT History: uses reading glasses Cardiovascular History: Reports: Other (See Below) Other Cardiovascular History: states his blood pressure "goes up and down" - no meds Respiratory History: Reports: None Gastrointestinal History: Reports: GERD, Other (See Below) Other Gastrointestinal History: hx of H Pylori Genitourinary History: Reports: None Musculoskeletal History: Reports: Neck Pain, Chronic Other Musculoskeletal History: hx of disc disease at C4-5-6, L1 Neurological History: Reports: Concussion Psychiatric History: Reports: PTSD Endocrine/Metabolic History: Reports: None Hematologic History: Reports: Other (See Below) Other Hematologic History: was told he had low postssium Immunologic History: Reports: None Oncologic (Cancer) History: Reports: None Dermatologic History: Reports: None - Past Surgical History Head Surgeries/Procedures: Reports: None HEENT Surgical History: Reports: None Cardiovascular Surgical History: Reports: None Respiratory Surgical History: Reports: None GI Surgical History: Reports: None Male Surgical History: Reports: None Endocrine Surgical History: Reports: None Neurological Surgical History: Reports: None Musculoskeletal Surgical History: Reports: None Oncologic Surgical History: Reports: None Dermatological Surgical History: Reports: None - SUBSTANCE USE Smoking Status *Q: Former Smoker Tobacco Use Within Last Twelve Months: No Recreational Drug Use History: No - HOME MEDS Home Medications: Home Meds Lansoprazole [Prevacid] 30 mg PO DAILY 09/25/17 [History] Naproxen Sodium [Aleve] 220 mg PO ASDIRECTED PRN 09/25/17 [History] Mylanta Maximum Strength 5 ml PO ASDIRECTED 11/20/17 [History] - CURRENT (IN HOUSE) MEDS Current Meds: Current Medications Lactated Ringer's (Ringers, Lactated) 1,000 mls @ 125 mls/hr IV ASDIRECTED TRUMAN
[2017-11-24] MEDS ORDERED: Midazolam 1 MG/ML 2 ML SDV ONE (13:10)
[2017-11-24] MEDS ORDERED: fentaNYL 100 MCG/2 ML SDV ONE (13:11)
[2017-11-24] MEDS ORDERED: Propofol 200 MG/20 ML SDV ONE ×2 (13:12→14:03)
--- NOTE | 2017-11-24 14:17 | PCM.OPNOTE ---
- General Post-Op/Procedure Note Date of Surgery/Procedure: 11/24/17 Operative Procedure(s): egd w bx. colonoscopy Findings: see dict [id number] Pre Op Diagnosis: abd pain Post-Op Diagnosis: Same Anesthesia Technique: Moderate Sedation Primary Surgeon: Rigoberto Osman Pathology: egd bx Complications: None Condition: Good
--- NOTE | 2017-11-24 14:40 | PCM.POSTAN ---
POST ANESTHESIA ASSESSMENT - MENTAL STATUS Mental Status: Alert, Oriented - RESPIRATORY Respiratory Status: Respiratory Rate WNL, Airway Patent - CARDIOVASCULAR CV Status: Pulse Rate WNL, Blood Pressure Stable - GASTROINTESTINAL GI Status: No Symptoms - POST OP HYDRATION Hydration Status: Adequate & Stable
--- NOTE | 2017-11-24 14:46 | PCM48HPAN ---
Post Anesthesia Note - EVALUATION WITHIN 48HRS OF ANESTHETIC Vital Signs in Normal Range: Yes Patient Participated in Evaluation: Yes Respiratory Function Stable: Yes Airway Patent: Yes Cardiovascular Function Stable: Yes Hydration Status Stable: Yes Pain Control Satisfactory: Yes Nausea and Vomiting Control Satisfactory: Yes Mental Status Recovered: Yes Resp Rate: 16
--- NOTE | 2017-11-24 17:44 | OR ---
SURGEON: Rigoberto Osman MD DATE OF PROCEDURE: 11/24/2017 PREOPERATIVE DIAGNOSIS: Abdominal pain. POSTOPERATIVE DIAGNOSES: Esophagogastroduodenoscopy diagnosis: Gastroesophageal reflux disease. Colonoscopy diagnosis: Hemorrhoids. PROCEDURES PERFORMED: Esophagogastroduodenoscopy with biopsy and colonoscopy. PROCEDURE IN DETAIL: EGD: The patient was taken to the endoscopy room, and with the TRACTOR CRANE OPERATOR, Diprivan was administered. A well-lubricated EGD scope was gently inserted through the oropharynx, down the esophagus, passing through the gastroesophageal junction, into the stomach. The mucosa was examined upon the passage. Any etiology will be noted. Once in the stomach, we continued to advance to the distal antrum, passed through the pylorus into the second portion of the duodenum. Again, the mucosa was examined for any abnormality and etiology. The scope was then retrieved back to the stomach and then retroflexed to look at the fundus of the stomach. If a biopsy was indicated, we will biopsy the antrum, body, and gastroesophageal junction. The air will be sucked out while the scope is retrieved to reduce the patient's discomfort. The patient tolerated the procedure well. There were no intraoperative complications. Dr. Osman was present through the whole procedure. Prior to surgery, a time-out had been called, the patient identified, procedure identified and antibiotic administered. Colonoscopy procedure: The patient was taken to the endoscopy room. A time out was called, patient identified, and procedure identified. Diprivan was then administrated. Patient went from awake to sleep, hearing doctor talking or door closing is normal. Perineum inspection and digital examination were then performed. A well- lubricated colonoscope was gently inserted through the rectum, advanced past the rectosigmoid junction, the descending colon, splenic flexure, transverse colon, hepatic flexure, ascending colon, arrived to the cecum. Cecum was identified as dictated in the finding. Then the scope was carefully withdrawn while attention was paid to the mucosal surface for any abnormality. Air will be sucked out during the scope withdrawal. At the rectum, retroflexed to examine any rectal diseases, fistula or hemorrhoids. Patient tolerated procedure well. There were no intraoperative complications, and Dr. Osman was present throughout the whole procedure. FINDINGS: EGD findings: 1. The patient is easily sedated with TRACTOR CRANE OPERATOR and Diprivan. The patient is soundly snoring. 2. Proximal esophagus, pharynx and oropharynx, no disease, no inflammation, no stricture. Distal GE junction has mild salmon-colored change consistent with mild acid reflux. Stomach rugae is normal in appearance and antrum was inflamed. Duodenum was grossly normal. Scope retrieved back to the stomach. Retroflexed look at the fundus of stomach, there was no hiatal hernia. There was no blood, bile, food particle in the stomach and biopsy done at antrum, body, GE junction and sucked out the gas while scope pulling out. Colonoscopy findings: 1. The patient is easily sedated with TRACTOR CRANE OPERATOR and Diprivan. The patient is soundly snoring. 2. Bowel prep is average to above average, very little liquid stool, no semi- formed stool. 3. Colon is rather straight forward. Cecum indicated by ileocecal fold, one- to-one indentation, light emittance, and appendiceal orifice was observed. Mucosa examined upon scope pulling out with some irrigation. The patient does not have diverticulosis, polyp, mass, growth, inflammation, stricture, ulceration, or AV malformation. The patient has mild internal hemorrhoids. No external hemorrhoids. The patient would benefit from repeat colonoscopy in 10 years from today or if clinically indicated otherwise. TIANNA / CHELSEA /[id number]
== END 2017-11-24 15:00 | disposition home or self-care (01) ==
LOC: MW.SDS 10:40
PROVIDERS: ATTEND Surgery
DX: K29.50 Unspecified chronic gastritis without bleeding (principal); K20.9 Esophagitis, unspecified; K21.9 Gastro-esophageal reflux disease without esophagitis; K64.8 Other hemorrhoids; Z79.899 Other long term (current) drug therapy; Z87.891 Personal history of nicotine dependence
CPT/HCPCS: 43239; 45380; J2250; J2704; J3010; J7120; 00813; 88305; 88312